=== PATIENT | female | born 1960 | race Hispanic/Latino ===

== ENCOUNTER 2018-02-02 13:23 | Emergency (ER) | payer OTHER ==
[2018-02-02] MEDS ORDERED: Ondansetron HCl/PF 4 MG/2 ML Vial ONE (13:31)
[2018-02-02 14:01] LABS: #Basophils 0.1 thou/uL (0.0-0.2); #Eosinphils 0.1 thou/uL (0.0-0.7); #Lymphocytes 2.6 thou/uL (1.20-3.40); #Monocytes 0.4 thou/uL (0.11-0.59); #Neutrophils 3.1 thou/uL (1.40-6.50); %Basophils 0.8 % (0.0-1.0); %Eosinophils 1.7 % (0.0-10.0); %Lymphocytes 41.4 % (21.0-51.0); %Monocytes 6.3 % (0.0-10.0); %Neutrophils 49.8 % (42.0-75.0); Hemoglobin 13.9 g/dL (12.0-16.0); Mean Corpuscular HGB CONC 33.1 g/dL (32.0-36.0); Mean Corpuscular Hemoglobin 30.3 pg (27.0-31.0); Mean Corpuscular Volume 91.4 fl (81.0-99.0); Mean Platelet Volume 5.9 fL (7.4-10.4); Platelet Count 329 thou/uL (130-400); RBC Distribution Width 11.7 % (11.5-14.5); Red Blood Cell (RBC) Count 4.59 mill/uL (4.20-5.40); White Blood Cell (WBC) Count 6.3 thou/uL (4.8-10.8)
[2018-02-02 14:22] LABS: ALT (SGPT) 25 U/L (8-55); AST (SGOT) 20 U/L (5-34); Albumin 4.2 g/dL (3.5-5.0); Alkaline Phosphatase 64 U/L (40-150); Anion Gap 14 mmol/L (10-20); BUN (Urea Nitrogen) 15 mg/dL (9.8-20.1); Bilirubin, Total 0.7 mg/dL (0.2-1.2); Calc. Creatinine Clearance 0 mL/min (70-130); Calcium 9.7 mg/dL (7.8-10.44); Carbon Dioxide 25 mmol/L (22-29); Chloride 104 mmol/L (98-107); Estimated GFR-MDRD 78; Globulin 2.9 g/dL (2.4-3.5); Glucose 115 mg/dL (70-105); Potassium 3.7 mmol/L (3.5-5.1); Protein, Total 7.1 g/dL (6.0-8.3); Sodium 139 mmol/L (136-145)
[2018-02-02] MEDS ORDERED: diphenhydrAMINE 50 MG/ML VIAL ONE (14:42)
[2018-02-02] MEDS ORDERED: Metoclopramide HCl 10 MG/2 ML VIAL ONE (14:42)
[2018-02-02 15:30] LABS: CKMB 1.9 ng/mL (0-6.6); Troponin I Less than 0.010 ng/mL (< 0.028)
--- NOTE | 2018-02-02 16:02 | CT ---
CT BRAIN WITHOUT CONTRAST: HISTORY: Weakness, dizziness, vomiting. FINDINGS: Comparison is made with the exam of 10/23/08. Postop changes of right temporal craniotomy are again seen with associated encephalomalacia in the ri ght temporal lobe. No evidence of acute infarct, hemorrhage, midline shift, or abnormal extraaxial f luid collections identified. The ventricular size is normal and the basilar cisterns are patent. No acute calvarial abnormalities are identified. The visualized paranasal sinuses and mastoid air cell s are well aerated. IMPRESSION: Postop changes. No CT evidence of acute intracranial process. POS: OFF
[2018-02-02] MEDS ORDERED: Meclizine HCl 25 MG TAB ONE (17:42)
--- NOTE | 2018-02-05 19:59 | EKG ---
Test Reason : WEAKNESS Blood Pressure : / mmHG Vent. Rate : 062 BPM Atrial Rate : 062 BPM P-R Int : 154 ms QRS Dur : 094 ms QT Int : 438 ms P-R-T Axes : 070 004 029 degrees QTc Int : 444 ms Normal sinus rhythm Possible Left atrial enlargement Borderline ECG Confirmed by ZENY HERNANDEZ ([id number]), online content editor MALKA MIRAMONTES ([id number]) on 02/05/2018 7:59:26 PM Referred By: Confirmed By:ZENY HERNANDEZ
== END 2018-02-02 17:50 | disposition home or self-care (01) ==
LOC: ERS 13:23
DX: G43.809 Other migraine, not intractable, without status migrainosus (principal); I10 Essential (primary) hypertension; Z79.899 Other long term (current) drug therapy
CPT/HCPCS: 36415; 70450; 80053; 82553; 84484; 85025; 93005; 96365; 96375; J1200; J2405; J2765

== ENCOUNTER 2020-05-24 07:58 | Outpatient (CLI) | payer OTHER ==
--- NOTE | 2020-05-24 08:41 | MMO ---
Bilateral MAMMO Bilat Screen [facility]. CLINICAL HISTORY: Patient is 60 years old and is seen for screening. The patient has no family history of breast cancer. The patient has no personal history of cancer. VIEWS: The views performed were: bilateral craniocaudal with tomosynthesis and bilateral mediolateral oblique with tomosynthesis. FILMS COMPARED: The present examination has been compared to prior imaging studies performed at [facility] on 03/11/2007, 03/14/2007, 02/06/2010 and 08/26/2018. This study has been interpreted with the assistance of computer-aided detection. MAMMOGRAM FINDINGS: There are scattered fibroglandular densities. There are benign appearing calcifications. There are no suspicious masses, calcifications or areas of architectural distortion. Nodularity is stable. There are no suspicious masses, suspicious calcifications, or new areas of architectural distortion. IMPRESSION: THERE IS NO MAMMOGRAPHIC EVIDENCE OF MALIGNANCY. A ROUTINE FOLLOW-UP MAMMOGRAM IN 1 YEAR IS RECOMMENDED. THE RESULTS OF THIS EXAM WERE SENT TO THE PATIENT. ACR BI-RADS Category 2 - Benign finding MAMMOGRAPHY NOTE: 1. A negative mammogram report should not delay a biopsy if a dominant of clinically suspicious mass is present. 2. Approximately 10% to 15% of breast cancers are not detected by mammography. 3. Adenosis and dense breasts may obscure an underlying neoplasm. Reported by: VICKI GIBBONS MD Electonically Signed: [id number]
== END 2020-05-24 07:59 | disposition home or self-care (01) ==
LOC: BICMAMMO 07:58
PROVIDERS: ATTEND Obstetrics & Gynecology
DX: Z12.31 Encounter for screening mammogram for malignant neoplasm of breast (principal)
CPT/HCPCS: 77063; 77067

== ENCOUNTER 2020-09-13 12:39 | Observation (INO) | payer OTHER ==
--- NOTE | 2020-09-13 13:59 | RAD ---
PORTABLE CHEST 1 VIEW: DATE: 09/13/2020. TIME: 1:49 PM. HISTORY: Abnormal FDG, nausea, vomiting, weakness. COMPARISON: 01/17/2015. FINDINGS: The heart size is normal. The aorta is tortuous. The lungs are expanded without lobar consolidation , pneumothoraces, or pleural effusions. IMPRESSION: No acute process. POS: AH
[2020-09-13 14:01] LABS: #Lymphocytes 1.3 thou/uL (1.20-3.40); #Monocytes 0.2 thou/uL (0.11-0.59); %Basophils 0.3 % (0.0-1.0); %Eosinophils 0.3 % (0.0-10.0); %Lymphocytes 19.4 % (21.0-51.0); %Monocytes 2.5 % (0.0-10.0); %Neutrophils 77.5 % (42.0-75.0); Hemoglobin 14.4 g/dL (12.0-16.0); Mean Corpuscular HGB CONC 33.9 g/dL (32.0-36.0); Mean Corpuscular Hemoglobin 30.8 pg (27.0-31.0); Mean Corpuscular Volume 90.8 fL (78.0-98.0); Mean Platelet Volume 6.5 fL (7.4-10.4); Platelet Count 334 thou/uL (130-400); RBC Distribution Width 11.6 % (11.5-14.5); Red Blood Cell (RBC) Count 4.69 mill/uL (4.20-5.40); White Blood Cell (WBC) Count 6.5 thou/uL (4.8-10.8)
[2020-09-13 14:26] LABS: ALT (SGPT) 20 U/L (8-55); AST (SGOT) 19 U/L (5-34); Albumin 4.3 g/dL (3.5-5.0); Alkaline Phosphatase 64 U/L (40-110); Anion Gap 13 mmol/L (10-20); BUN (Urea Nitrogen) 18 mg/dL (9.8-20.1); Bilirubin, Total 0.5 mg/dL (0.2-1.2); Calc. Creatinine Clearance 0 mL/min (70-130); Calcium 9.4 mg/dL (7.8-10.44); Carbon Dioxide 25 mmol/L (22-29); Chloride 101 mmol/L (98-107); Estimated GFR-MDRD 83; Globulin 3.3 g/dL (2.4-3.5); Glucose 138 mg/dL (70-105); Lipase 20 U/L (8-78); Potassium 3.7 mmol/L (3.5-5.1); Protein, Total 7.6 g/dL (6.0-8.3); Sodium 135 mmol/L (136-145)
[2020-09-13] MEDS ORDERED: Metoclopramide 10 MG/10 ML UDCUP ONE (14:40)
[2020-09-13] MEDS ORDERED: Metoclopramide HCl 10 MG/2 ML VIAL ONE (14:41)
--- NOTE | 2020-09-13 16:10 | CT ---
Exam: Head CT without contrast HISTORY: Altered mental status COMPARISON: 02/02/2018 FINDINGS: Hemorrhage: No intraparenchymal hemorrhage or extra-axial hematoma. Brain parenchyma: Stable encephalomalacia and gliosis in the right temporal lobe. Remainder the cereb rum demonstrates preservation of cortical raya-white white matter differentiation. Minimal chronic small vessel ischemic changes of the white matter.No midline shift. Basilar cisterns are patent. Ventricular system: Ventricles and sulci are patent and symmetric. Calvarium: Stable postoperative changes in the right calvarium. Sinuses and mastoid air cells: Adequate aeration. IMPRESSION: No acute intracranial process.
[2020-09-13] MEDS ORDERED: Aspirin Chewable 81 MG TAB ONE (16:20)
--- NOTE | 2020-09-13 18:46 | PDOC.HHP ---
Hospitalist HPI - History of Present Illness Dizziness, nausea History of Present Illness: Ms. Vega is a 60 year-old female with a past medical history of vertigo, hypertension, migraines, meningioma status post resection who presented to the emergency room sent in by her primary care provider for dizziness, nausea and abnormal EKG. Patient reports that this morning while she was working out in her yard she developed acute lightheadedness, dizziness and nausea. Patient reports that this dizziness is very different than her dizziness from vertigo. She did not feel like the room was spinning around her and instead felt as though she was going to pass out. She then proceeded to have multiple episodes of nausea and vomiting. She decided to present to her primary care provider for concerns that this may be related to Covid. At her primary care provider's office she is rapid tested for Covid which was negative, and an EKG was done which showed anterior T wave inversions. Patient then presented to the emergency room at [facility]. Patient denies any chest pain, shortness of breath. She denies any numbness, weakness, paresthesias. She denies any prior episodes of this. She does have a significant family history of heart disease with her brother whom of a heart attack. She has hypertension, and is a non-smoker. In emergency room initial vital signs 145/79, 73, 20, 97.5, 100% on room air. EKG showed nonspecific T wave inversions but no ischemic changes. Initial troponin less than 0.010. BUN/CR 18/0.72. H/H 14.4/42.6. White blood cell count 6.5. Sodium 135, potassium 3.7. Patient received 1 L of NS, Reglan and aspirin in the emergency room. Hospitalist ROS - Review of Systems Constitutional: denies: fever, chills, sweats, weakness, malaise, other Eyes: denies: pain, vision change, conjunctivae inflammation, eyelid inflammation, redness, other ENT: reports: nose congestion. denies: ear pain, ear discharge, nose pain, nose discharge, mouth pain, mouth swelling, throat pain, throat swelling, other Respiratory: denies: cough, dry, shortness of breath, hemoptysis, SOB with excertion, pleuritic pain, sputum, wheezing, other Cardiovascular: reports: light headedness. denies: chest pain, palpitations, orthopnea, paroxysmal noc. dyspnea, edema, other Gastrointestinal: reports: nausea, vomiting. denies: abdominal pain, diarrhea, constipation, melena, hematochezia, other Genitourinary: denies: dysuria, frequency, incontinence, hematuria, retention, other Musculoskeletal: denies: neck pain, shoulder pain, arm pain, back pain, hand pain, leg pain, foot pain, other Skin: denies: rash, lesions, aruna, bruising, other Neurological: denies: weakness, numbness, incoordination, change in speech, confusion, seizures, other - Medication Medications: Her medications include Lisinopril Omeprazole Maxalt Allergy to Biaxin Hospitalist History - Past Medical History Other Medical History: Past medical history of Hypertension Migraines Meningioma status post resection Vertigo - Past Surgical History Other Surgical History: Past surgical history includes Cholecystectomy Tubal ligation Carpal tunnel release Meningioma resection - Family History Other Family History: Family history significant for Cardiac disease with brother who passed of heart attack - Social History Smoking Status: Never smoker Alcohol: reports: Occassional Drugs: reports: none Living Situation: With Family Activity level: independent ambulation - Exam General Appearance: NAD, awake alert Eye: PERRL, anicteric sclera ENT: normocephalic atraumatic, no oropharyngeal lesions, moist mucosa Neck: supple, symmetric, no JVD, no thyromegaly, no lymphadenopathy, no carotid bruit Heart: RRR, no murmur, no gallops, no rubs, normal peripheral pulses Respiratory: CTAB, no wheezes, no rales, no ronchi, normal chest expansion, no tachypnea, normal percussion Gastrointestinal: soft, non-tender, non-distended, normal bowel sounds, no palpable masses, no hepatomegaly, no splenomegaly, no bruit Extremities: no cyanosis, no clubbing, no edema Skin: normal turgor, no lesions, no rashes Neurological: cranial nerve grossly intact, normal sensation to touch, no weakness, no focal deficits, no new deficit Musculoskeletal: normal tone, normal strength, no muscle wasting Psychiatric: normal affect, normal behavior, A&O x 3 Hospitalist Results - Labs Result Diagrams: 09/13/20 13:45 09/13/20 13:45 Lab results: WBC 6.5 thou/uL (4.8-10.8) 09/13/20 13:45 Hgb 14.4 g/dL (12.0-16.0) 09/13/20 13:45 Hct 42.6 % (36.0-47.0) 09/13/20 13:45 MCV 90.8 fL (78.0-98.0) 09/13/20 13:45 Plt Count 334 thou/uL (130-400) 09/13/20 13:45 Neutrophils % 77.5 % (42.0-75.0) H 09/13/20 13:45 Sodium 135 mmol/L (136-145) L 09/13/20 13:45 Potassium 3.7 mmol/L (3.5-5.1) 09/13/20 13:45 Chloride 101 mmol/L (98-107) 09/13/20 13:45 Carbon Dioxide 25 mmol/L (22-29) 09/13/20 13:45 BUN 18 mg/dL (9.8-20.1) 09/13/20 13:45 Creatinine 0.72 mg/dL (0.6-1.1) 09/13/20 13:45 Glucose 138 mg/dL (70-105) H 09/13/20 13:45 Calcium 9.4 mg/dL (7.8-10.44) 09/13/20 13:45 Total Bilirubin 0.5 mg/dL (0.2-1.2) 09/13/20 13:45 AST 19 U/L (5-34) 09/13/20 13:45 ALT 20 U/L (8-55) 09/13/20 13:45 Alkaline Phosphatase 64 U/L (40-110) 09/13/20 13:45 Troponin I Less than 0.010 ng/mL (< 0.028) 09/13/20 13:45 Serum Total Protein 7.6 g/dL (6.0-8.3) 09/13/20 13:45 Albumin 4.3 g/dL (3.5-5.0) 09/13/20 13:45 Lipase 20 U/L (8-78) 09/13/20 13:45 Hospitalist H&P A/P - Plan Plan: Atypical chest pain 60 year-old female with past medical history of hypertension, vertigo presents with nausea indigestion associated with lightheadedness. Patient has a family history significant for a brother who passed of an [place]. Initial troponin 0.010, but EKG at primary care provider's office showed inferior T wave inversions. EKG here shows nonspecific T wave inversions. Patient symptoms have now r esolved. Patient reports that she has had a stress test but it was over 5 years ago. Will admit patient for ACS rule out given her EKG changes, atypical symptoms and significant family history. Plan Trend troponin Telemetry monitoring Stress test Aspirin Hypertension History of hypertension on lisinopril. We will continue home antihypertensive. History of meningioma Patient has a history of vertigo for which she frequently has episodes of dizziness, however she reports that this dizziness is different. Is associated with nausea and vomiting. CT brain showed no acute abnormalities. No papilledema on exam, blood pressure and heart rate normal. No findings to suggest elevated intracranial pressure. DVT prophylaxisSCDs Full codemedical decision-maker patient's daughter. Case discussed with attending physician, Dr. Snowden.
[2020-09-13 18:51] LABS: Troponin I Less than 0.010 ng/mL (< 0.028)
[2020-09-13] MEDS ORDERED: Acetaminophen 325 MG TAB PO PRN (21:15)
[2020-09-13] MEDS ORDERED: Ondansetron ODT 4 MG TAB SL PRN (21:15)
[2020-09-13] MEDS ORDERED: Ondansetron PF 4 MG/2 ML Vial IVP PRN (21:15)
[2020-09-13 21:52] LABS: Troponin I Less than 0.010 ng/mL (< 0.028)
[2020-09-13 22:05] VITALS: BMI 36.8
[2020-09-14 04:42] LABS: #Eosinphils 0.1 thou/uL (0.0-0.7); #Lymphocytes 2.2 thou/uL (1.20-3.40); #Monocytes 0.5 thou/uL (0.11-0.59); #Neutrophils 2.9 thou/uL (1.40-6.50); %Basophils 0.5 % (0.0-1.0); %Eosinophils 2.4 % (0.0-10.0); %Lymphocytes 37.6 % (21.0-51.0); %Monocytes 8.5 % (0.0-10.0); Hemoglobin 13.2 g/dL (12.0-16.0); Mean Corpuscular HGB CONC 33.5 g/dL (32.0-36.0); Mean Corpuscular Volume 92.7 fL (78.0-98.0); Mean Platelet Volume 6.7 fL (7.4-10.4); Platelet Count 329 thou/uL (130-400); RBC Distribution Width 11.6 % (11.5-14.5); Red Blood Cell (RBC) Count 4.24 mill/uL (4.20-5.40); White Blood Cell (WBC) Count 5.7 thou/uL (4.8-10.8)
[2020-09-14 04:58] LABS: Anion Gap 12 mmol/L (10-20); BUN (Urea Nitrogen) 16 mg/dL (9.8-20.1); Calc. Creatinine Clearance 121 mL/min (70-130); Calcium 8.8 mg/dL (7.8-10.44); Carbon Dioxide 25 mmol/L (22-29); Cardiac Risk 3.5 (Less than 4.5); Chloride 106 mmol/L (98-107); Cholesterol 202 mg/dl (< 200 Desired); Estimated GFR-MDRD 78; Glucose 103 mg/dL (70-105); HDL Cholesterol 58 mg/dL (>60 Neg Risk); LDL Cholesterol, Calculated 126 mg/dL; Sodium 139 mmol/L (136-145); Triglycerides 92 mg/dL (Less than 150)
[2020-09-14] MEDS ORDERED: Aspirin 81 mg Enteric Coated Tablet PO SCH (09:00)
--- NOTE | 2020-09-14 12:16 | NM ---
Exam: Nuclear medicine cardiac stress with EF and wall motion HISTORY: Chest pain and EKG changes. TECHNIQUE: Patient was administered 30.8 mCi of technetium 9M sestamibi for stress imaging FINDINGS: Homogeneous distribution of the radiotracer in the left ventricle. There are no defects End-diastolic volume is 71 mL End-systolic volume is 16 mm Ejection fraction: 78%. Normal wall motion and contractility IMPRESSION: 1. 70% ejection fraction. 2. Homogeneous distribution of the radiotracer in the left ventricle.
[2020-09-14] MEDS ORDERED: ADENOSINE 60 MG/20 ML VIAL ONE (14:11)
--- NOTE | 2020-09-14 15:09 | PDOC.DS.DS ---
Provider - Provider Date of Admission: 09/13/20 18:00 Date of Discharge: 09/14/20 Admitting Provider: Neri Snowden MD Primary Care Physician: Rigoberto Tomlin MD Course - Labs Lab Results: 09/14/20 04:21 09/14/20 04:21 Abnormal Lab Results - Last 48 hrs 09/13/20 13:45: MPV 6.5 L, Neutrophils % 77.5 H, Lymphocytes % 19.4 L 09/13/20 13:45: Sodium 135 L 09/14/20 04:21: Cholesterol 202 H 09/14/20 04:21: MPV 6.7 L - Physical Exam Vitals: Vital Signs (12 hours) Temp Pulse Resp BP BP Pulse Ox 09/14/20 11:41 97.6 F 61 144/73 H 97 09/14/20 08:00 98.1 F 68 18 131/79 98 09/14/20 03:45 97.6 F 71 16 119/61 95 Weight Weight 214 lb 15.211 oz Physical Exam: The patient was seen and examined on the day of discharge. Patient denies chest pain or shortness of breath. Vital signs are stable. S1 and S2 are heard. Lungs are clear to auscultation bilaterally. Problem - Discharge Plan Assessment: Discharge diagnosis: 1. Chest pain 2. Chest pain most likely secondary to musculoskeletal etiology 3. Dyslipidemia Hospital course: Patient is a pleasant 60-year-old lady who was admitted to [facility] on September 13, 2020 for dizziness, nausea and abnormal EKG. Her symptoms resolved following admission. Nuclear stress test showed left ventricle ejection fraction of 70% and homogeneous distribution of the radiotracer in the left ventricle. Pulmonary embolism was ruled out with a negative D-dimer. She is being discharged home in a stable condition. On the day of discharge, she has a normal Chem-7, fasting lipid profile showing triglycerides 92, cholesterol 202, LDL cholesterol 126 and history of cholesterol 58. CBC is unremarkable. Many thanks for allowing me to participate in your patient's care. Please feel free to contact me with any questions or concerns. Plan - Discharge Medications Home Medications: Medication Instructions Recorded Confirmed Type Fish Oil 1,000 mg PO DAILY 09/13/20 09/13/20 History Lisinopril [Prinivil] 20 mg PO HS 09/13/20 09/13/20 History Rizatriptan Benzoate [Maxalt] 10 mg PO Q2HR PRN 09/13/20 09/13/20 History Allergies: clarithromycin [From Biaxin] Allergy (Verified 09/13/20 23:17) - Discharge Instructions Discharge Instructions:: Follow-up with primary care provider for management of dyslipidemia. Activity:: Activity as Tolerated Nourishment:: Heart Healthy Diet - Follow up Plan Referrals: Rigoberto Tomlin MD [Primary Care Provider] - 3 Days Disposition: HOME Quality - Care Measures CORE MEASURES:: N/A
[2020-09-14 16:28] VITALS: BP 143/84; TEMP 97.7
--- NOTE | 2020-09-21 15:55 | EKG ---
Test Reason : Blood Pressure : / mmHG Vent. Rate : 068 BPM Atrial Rate : 068 BPM P-R Int : 162 ms QRS Dur : 084 ms QT Int : 418 ms P-R-T Axes : 059 -03 030 degrees QTc Int : 444 ms Normal sinus rhythm Normal ECG Confirmed by AB WILL ([id number]), food editor MOE ESCOTO ([id number]) on 09/21/2020 3:55:06 PM Referred By: Confirmed By:AB WILL
--- NOTE | 2020-09-21 15:55 | EKG ---
Test Reason : Blood Pressure : / mmHG Vent. Rate : 064 BPM Atrial Rate : 064 BPM P-R Int : 166 ms QRS Dur : 092 ms QT Int : 432 ms P-R-T Axes : 059 002 036 degrees QTc Int : 445 ms Sinus rhythm with occasional Premature ventricular complexes Otherwise normal ECG Confirmed by AB WILL ([id number]), film and video editor MOE ESCOTO ([id number]) on 09/21/2020 3:54:59 PM Referred By: Confirmed By:AB WILL
== END 2020-09-14 16:56 | disposition home or self-care (01) ==
LOC: ERS 12:39 → 2NO 18:00
PROVIDERS: ADMIT Student in an Organized Health Care Education/Training Program; ATTEND Internal Medicine
DX: R07.89 Other chest pain (principal); E78.5 Hyperlipidemia, unspecified; R42 Dizziness and giddiness; R11.0 Nausea; R94.31 Abnormal electrocardiogram [ECG] [EKG]; I10 Essential (primary) hypertension; G43.909 Migraine, unspecified, not intractable, without status migrainosus; Z79.899 Other long term (current) drug therapy; Z88.1 Allergy status to other antibiotic agents
CPT/HCPCS: 36415; 70450; 71045; 78452; 80048; 80053; 80061; 83690; 83735; 84484; 85025; 85379; 87635; 93005; 93017; 94760; 96365; 96366; A9500; G0378; J0153; J2765; U0003

== ENCOUNTER 2021-08-19 09:43 | Outpatient (CLI) | payer OTHER | END 2021-08-19 09:44 | disposition home or self-care (01) | LOC: BICMAMMO 09:43 | PROVIDERS: ATTEND Student in an Organized Health Care Education/Training Program | DX: Z12.31 Encounter for screening mammogram for malignant neoplasm of breast (principal) | CPT/HCPCS: 77063; 77067 ==

== ENCOUNTER 2024-12-14 09:18 | Outpatient (CLI) | payer BC | END 2024-12-14 09:19 | disposition home or self-care (01) | LOC: BICRAD 09:18 | PROVIDERS: ATTEND Internal Medicine | DX: R05.3 Chronic cough (principal) | CPT/HCPCS: 71046 ==